=== PATIENT | male | born 1960 | race Caucasian/White ===

== ENCOUNTER 2017-07-12 10:26 | Emergency (ER) | payer MEDICAID, OTHER ==
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
--- NOTE | 2017-07-12 11:17 | EKG REPORT ---
SEVERITY:- NORMAL ECG - SINUS RHYTHM : Confirmed by: Lori Lares MD 12-Jul-2017 11:16:30
[2017-07-12 11:39] LABS: APPEARANCE,URINE CLEAR; BILIRUBIN,URINE NEGATIVE (NEGATIVE); GLUCOSE, URINE NEGATIVE (NEGATIVE); KETONES,URINE NEGATIVE (NEGATIVE); LEUKOCYTE ESTERASE,URINE NEGATIVE (NEGATIVE); NITRITE,URINE NEGATIVE (NEGATIVE); PROTEIN,URINE NEGATIVE (NEGATIVE); URINE SPECIFIC GRAVITY 1.002; UROBILINOGEN,URINE NEGATIVE mg/dL (<2.0)
[2017-07-12 11:42] LABS: ABSOLUTE BASOPHILS # (AUTO) 0.1 10^3/uL (0.0-0.2); ABSOLUTE EOSINOPHILS # (AUTO) 0.2 10^3/uL (0.0-0.6); ABSOLUTE LYMPHOCYTES (AUTO) 2.2 10^3/uL (0.5-4.7); ABSOLUTE MONOCYTES (AUTO) 0.6 10^3/uL (0.1-1.4); ABSOLUTE NEUT (AUTO) 3.7 10^3/uL (1.7-8.2); BASOPHILS % (AUTO) 0.9 % (0-2); EOSINOPHILS % (AUTO) 3.4 % (0-6); HEMATOCRIT 39.5 % (37.9-51.0); HEMOGLOBIN 13.4 g/dL (13.5-17.0); HGB HCT DIFFERENCE 0.7; LYMPHOCYTES % (AUTO) 31.9 % (13-45); MEAN CORPUSCULAR HEMOGLOBIN 30.8 pg (27.0-33.4); MEAN CORPUSCULAR HGB CONC 33.9 g/dL (32.0-36.0); MEAN CORPUSCULAR VOLUME 91 fl (80-97); MONOCYTES % (AUTO) 8.7 % (3-13); RED BLOOD COUNT 4.35 10^6/uL (4.35-5.55); RED CELL DISTRIBUTION WIDTH 13.5 % (11.5-14.0); SEGMENTED NEUTROPHILS % (AUTO) 55.1 % (42-78); WHITE BLOOD COUNT 6.8 10^3/uL (4.0-10.5)
[2017-07-12 11:53] LABS: ALANINE AMINOTRANSFERASE 31 U/L (21-72); ALBUMIN 4.3 g/dL (3.5-5.0); ALKALINE PHOSPHATASE 75 U/L (38-126); ANION GAP 10 (5-19); ASPARTATE AMINO TRANSFERASE 21 U/L (17-59); BILIRUBIN,DIRECT 0.4 mg/dL (0.0-0.4); BILIRUBIN,TOTAL 0.4 mg/dL (0.2-1.3); BLOOD UREA NITROGEN 17 mg/dL (7-20); CALCIUM 9.2 mg/dL (8.4-10.2); CARBON DIOXIDE 25 mmol/L (22-30); CHLORIDE 105 mmol/L (98-107); CREATININE RESULT 1.15 mg/dL (0.52-1.25); GLUCOSE 88 mg/dL (75-110); POTASSIUM 3.8 mmol/L (3.6-5.0); SODIUM 140.4 mmol/L (137-145); TOTAL PROTEIN 7.1 g/dL (6.3-8.2)
[2017-07-12 11:54] LABS: ALCOHOL < 10 mg/dL (NONE DETECTED)
[2017-07-12 11:59] LABS: URINE BARBITURATES SCREEN NEGATIVE; URINE METHADONE SCREEN NEGATIVE; URINE OPIATES LOW NEGATIVE; URINE PHENCYCLIDINE SCREEN NEGATIVE
--- NOTE | 2017-07-12 12:51 | ER Document Report ---
ED Psych Disorder / Suicide - General Mode of Arrival: Ambulatory Information source: Patient TRAVEL OUTSIDE OF THE [place] IN LAST 30 DAYS: No <BUBBA HUANG - Last Filed: 07/12/17 17:24> <DANYA ROCHE - Last Filed: 07/12/17 18:33> - General Chief Complaint: Suicidal Ideation Stated Complaint: SUICIDIAL IDEATIONS Time Seen by Provider: 07/12/17 10:46 Notes: Patient is a 57-year-old male who presents to the emergency department today with complaints of suicidal and homicidal ideation. Patient states that his girlfriend recently broke up with him and "left him broke". Patient states he would kill himself with a knife if he had the opportunity. Patient states he has had inpatient stays in psychiatric facilities in the past. Patient is on Seroquel, prazosin, and a medication he cannot remember. (BUBBA HUANG) - Related Data Allergies/Adverse Reactions: No Known Allergies Allergy (Verified 07/12/17 10:31) Home Medications: Current Home Medications Atorvastatin Calcium [Lipitor 40 mg Tablet] 40 mg PO QHS 07/12/17 [History] Buprenorphine HCl/Naloxone HCl [Suboxone 8 mg-2 mg Sl Film] 1 film SL TID [History] Buspirone HCl [Buspar 30 mg Tablet] 30 mg PO BID 07/12/17 [History] Escitalopram Oxalate [Lexapro] 20 mg PO DAILY 07/12/17 [History] Gabapentin [Neurontin 400 mg Capsule] 400 mg PO TID 07/12/17 [History] Ibuprofen [Motrin 800 mg Tablet] 800 mg PO TID 07/12/17 [History] Prazosin HCl [Minipress] 2 mg PO QHS 07/12/17 [History] Quetiapine Fumarate [Seroquel Xr] 600 mg PO QHS 07/12/17 [History] Trihexyphenidyl HCl [Artane 2 mg Tablet] 2 mg PO BID 07/12/17 [History] Past Medical History - General Information source: Patient - Social History Smoking Status: Current Every Day Smoker Cigarette use (# per day): Yes Chew tobacco use (# tins/day): No Frequency of alcohol use: None Drug Abuse: Marijuana Lives with: Family Family History: Reviewed & Not Pertinent Patient has suicidal ideation: Yes - knife to throat Patient has homicidal ideation: Yes - kill girlfriend Pulmonary Medical History: Reports: Hx Bronchitis Surgical Hx: Negative <BUBBA HUANG - Last Filed: 07/12/17 17:24> Review of Systems - Review of Systems Constitutional: No symptoms reported EENT: No symptoms reported Cardiovascular: No symptoms reported Respiratory: No symptoms reported Gastrointestinal: No symptoms reported Genitourinary: No symptoms reported Male Genitourinary: No symptoms reported Musculoskeletal: No symptoms reported Skin: No symptoms reported Hematologic/Lymphatic: No symptoms reported Neurological/Psychological: See HPI, Homicidal ideation, Suicidal ideation -: Yes All other systems reviewed and negative <BUBBA HUANG - Last Filed: 07/12/17 17:24> Physical Exam <BUBBA HUANG - Last Filed: 07/12/17 17:24> <DANYA ROCHE - Last Filed: 07/12/17 18:33> - Vital signs Vitals: Temp Pulse Resp Pulse Ox 98.1 F 59 L 16 99 07/12/17 10:33 07/12/17 10:33 07/12/17 10:33 07/12/17 10:33 - Notes Notes: PHYSICAL EXAM GENERAL: Alert, interacts well. No acute distress. HEAD: Normocephalic, atraumatic. EYES: Pupils equal, round, and reactive to light. Extraocular movements intact. ENT: Oral mucosa moist, tongue midline. NECK: Full range of motion. Supple. Trachea midline. LUNGS: Clear to auscultation bilaterally, no wheezes, rales, or rhonchi. No respiratory distress. HEART: Regular rate and rhythm. No murmurs, gallops, or rubs. ABDOMEN: Soft, non-tender. Non-distended. Bowel sounds present in all 4 quadrants. EXTREMITIES: Moves all 4 extremities spontaneously. No edema, radial and dorsalis pedis pulses 2/4 bilaterally. No cyanosis. NEUROLOGICAL: Alert and oriented x3. Normal speech. PSYCH: Depressed affect, normal mood. SKIN: Warm, dry, normal turgor. No rashes or lesions noted. (BUBBA HUANG) Course - Laboratory Result Diagrams: 07/12/17 11:20 07/12/17 11:20 <BUBBA HUANG - Last Filed: 07/12/17 17:24> - Laboratory Result Diagrams: 07/12/17 11:20 07/12/17 11:20 <DANYA ROCHE - Last Filed: 07/12/17 18:33> - Re-evaluation Re-evalutation: 07/12/17 18:31 CBC unremarkable, CMP unremarkable, urinalysis unremarkable, urine drug screen negative, alcohol, salicylates and acetaminophen all undetectable, EKG unremarkable. Patient is medically cleared at this time and is stable for transfer to psychiatric hospital or discharged home after mental health consultation. (DANYA ROCHE) - Vital Signs Vital signs: Temp Pulse Resp BP Pulse Ox 98.1 F 59 L 16 99 07/12/17 10:33 07/12/17 10:33 07/12/17 10:33 07/12/17 10:33 - Laboratory Laboratory results interpreted by me: 07/12/17 07/12/17 11:20 11:20 Hgb 13.4 L Plt Count 108 L Salicylates < 1.0 L Acetaminophen < 10 L - EKG Interpretation by Me Additional EKG results interpreted by me: 07/12/17 18:32 EKG shows sinus rhythm at a rate of 58, normal axis, normal intervals, no ST segment elevations or depressions, no T-wave inversions per my interpretation. ( DANYA ROCHE) Discharge <BUBBA HUANG - Last Filed: 07/12/17 17:24> <DANYA ROCHE - Last Filed: 07/12/17 18:33> - Discharge Clinical Impression: Suicidal ideation, Homicidal ideation Condition: Stable Disposition: PSYCH HOSP/UNIT Referrals: BRITTNEY CARDOZA, [facility] [Primary Care Provider] - Follow up as needed Scribe Attestation: 07/12/17 18:33 I personally performed the services described in the documentation, reviewed and edited the documentation which was dictated to the scribe in my presence, and it accurately records my words and actions. (DANYA ROCHE) Scribe Documentation - Scribe Written by Evans:: Evans Krishnan, 07/12/2017 1734 acting as scribe for :: Joann <BUBBA HUANG - Last Filed: 07/12/17 17:24>
[2017-07-13] MEDS ORDERED: DOXAZOSIN MESYLATE 2 MG TABLET PO SCH (00:30)
[2017-07-13] MEDS: GABAPENTIN 400 MG CAPSULE PO SCH ×2 (09:29→14:32)
[2017-07-13] MEDS ORDERED: BUSPIRONE HCL 10 MG TABLET PO SCH (10:00)
[2017-07-13] MEDS ORDERED: (PENDING PHARMACY ID) (Buprenorphine Hcl/Naloxone Hcl [Suboxone 8 Mg-2 Mg Sl Film] 1 FILM) SL SCH (10:00)
[2017-07-13] MEDS ORDERED: TRIHEXYPHENIDYL HCL 2 MG TABLET PO SCH (10:00)
[2017-07-13] MEDS ORDERED: ESCITALOPRAM OXALATE 10 MG TABLET PO SCH (10:00)
[2017-07-13] MEDS ORDERED: KETOROLAC TROMETHAMINE 60 MG/2 ML SDV IM ONE (10:17)
[2017-07-13] MEDS ORDERED: HYDROCODONE/ACETAMINOPHEN 10-325 MG TABLET PO ONE (10:17)
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
[2017-07-13 15:52] VITALS: BP 156/100
[2017-07-13] MEDS ORDERED: ATORVASTATIN CALCIUM 40 MG TABLET PO SCH (22:00)
[2017-07-13] MEDS ORDERED: QUETIAPINE FUMARATE 600 MG PO SCH (22:00)
[2017-07-13] MEDS ORDERED: (PENDING PHARMACY ID) (Prazosin Hcl [Minipress] 2 MG) PO SCH (22:00)
== END 2017-07-13 16:04 | disposition home or self-care (01) ==
LOC: ER 10:26
DX: R45.851 Suicidal ideations (principal); R45.850 Homicidal ideations; F43.10 Post-traumatic stress disorder, unspecified; F31.30 Bipolar disorder, current episode depressed, mild or moderate severity, unspecified
CPT/HCPCS: 93005; 99285; 96372; 36415; 80307 ×4; 85025; 80053; 81001; 93010; J1885; J3490 ×3

== ENCOUNTER 2017-07-13 19:06 | Emergency (ER) | payer MEDICAID, OTHER ==
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
[2017-07-13 21:47] LABS: APPEARANCE,URINE SLIGHTLY-CLOUDY; BILIRUBIN,URINE NEGATIVE (NEGATIVE); GLUCOSE, URINE NEGATIVE (NEGATIVE); KETONES,URINE NEGATIVE (NEGATIVE); LEUKOCYTE ESTERASE,URINE NEGATIVE (NEGATIVE); NITRITE,URINE NEGATIVE (NEGATIVE); PROTEIN,URINE NEGATIVE (NEGATIVE); URINE SPECIFIC GRAVITY 1.024
[2017-07-13 22:01] LABS: ABSOLUTE EOSINOPHILS # (AUTO) 0.1 10^3/uL (0.0-0.6); ABSOLUTE LYMPHOCYTES (AUTO) 1.9 10^3/uL (0.5-4.7); ABSOLUTE MONOCYTES (AUTO) 0.6 10^3/uL (0.1-1.4); ABSOLUTE NEUT (AUTO) 6.8 10^3/uL (1.7-8.2); BASOPHILS % (AUTO) 0.5 % (0-2); EOSINOPHILS % (AUTO) 1.1 % (0-6); HEMATOCRIT 43.8 % (37.9-51.0); HEMOGLOBIN 14.9 g/dL (13.5-17.0); HGB HCT DIFFERENCE 0.9; LYMPHOCYTES % (AUTO) 20.5 % (13-45); MEAN CORPUSCULAR HEMOGLOBIN 30.8 pg (27.0-33.4); MEAN CORPUSCULAR VOLUME 91 fl (80-97); RED BLOOD COUNT 4.84 10^6/uL (4.35-5.55); RED CELL DISTRIBUTION WIDTH 13.4 % (11.5-14.0); SEGMENTED NEUTROPHILS % (AUTO) 71.9 % (42-78); WHITE BLOOD COUNT 9.5 10^3/uL (4.0-10.5)
[2017-07-13 22:04] LABS: URINE BARBITURATES SCREEN NEGATIVE; URINE METHADONE SCREEN NEGATIVE; URINE OPIATES LOW UNCONFIRMED POSITIVE; URINE PHENCYCLIDINE SCREEN NEGATIVE
[2017-07-13 22:08] LABS: ALANINE AMINOTRANSFERASE 30 U/L (21-72); ALBUMIN 4.6 g/dL (3.5-5.0); ALKALINE PHOSPHATASE 70 U/L (38-126); ANION GAP 11 (5-19); ASPARTATE AMINO TRANSFERASE 20 U/L (17-59); BILIRUBIN,DIRECT 0.4 mg/dL (0.0-0.4); BILIRUBIN,TOTAL 0.5 mg/dL (0.2-1.3); BLOOD UREA NITROGEN 27 mg/dL (7-20); CALCIUM 9.9 mg/dL (8.4-10.2); CARBON DIOXIDE 26 mmol/L (22-30); CHLORIDE 108 mmol/L (98-107); CREATININE RESULT 1.04 mg/dL (0.52-1.25); GLUCOSE 96 mg/dL (75-110); POTASSIUM 4.5 mmol/L (3.6-5.0); SODIUM 144.8 mmol/L (137-145); TOTAL PROTEIN 7.7 g/dL (6.3-8.2)
[2017-07-13 22:14] LABS: ALCOHOL < 10 mg/dL (NONE DETECTED)
[2017-07-13] MEDS ORDERED: NICOTINE 21 MG/24 HR PATCH.TD24 TD ONE (23:36)
[2017-07-14] MEDS ORDERED: IBUPROFEN 800 MG TABLET ONE (00:28)
[2017-07-14] MEDS: IBUPROFEN 800 MG TABLET PO SCH ×2 (01:10→09:40)
[2017-07-14] MEDS ORDERED: TRIHEXYPHENIDYL HCL 2 MG TABLET PO ONE (01:15)
[2017-07-14] MEDS ORDERED: DOXAZOSIN MESYLATE 2 MG TABLET PO ONE (02:00)
[2017-07-14] MEDS ORDERED: DOXAZOSIN MESYLATE 2 MG TABLET ONE (02:40)
[2017-07-14] MEDS ORDERED: TRIHEXYPHENIDYL HCL 2 MG TABLET ONE (02:40)
[2017-07-14] MEDS ORDERED: GABAPENTIN 400 MG CAPSULE PO SCH (06:00)
--- NOTE | 2017-07-14 09:33 | ER Document Report ---
Doctor's Note Notes: 07/14/17 09:33 As the rounding physician for our psychiatric patients, I have reviewed the chart, vitals, lab work. Patient has been examined and noted to be stable and was actually discharged earlier yesterday returned immediately. I am awaiting mental health in put.
[2017-07-14] MEDS ORDERED: BUSPIRONE HCL 10 MG TABLET PO SCH (10:00)
[2017-07-14] MEDS ORDERED: ESCITALOPRAM OXALATE 10 MG TABLET PO SCH (10:00)
[2017-07-14] MEDS ORDERED: TRIHEXYPHENIDYL HCL 2 MG TABLET PO SCH (10:00)
[2017-07-14 10:45] VITALS: BP 131/74
--- NOTE | 2017-07-14 16:54 | EKG REPORT ---
SEVERITY:- NORMAL ECG - SINUS RHYTHM : Confirmed by: Lori Lares MD 14-Jul-2017 16:54:23
[2017-07-14] MEDS ORDERED: (PENDING PHARMACY ID) (Prazosin Hcl [Minipress] 2 MG) PO SCH (22:00)
[2017-07-14] MEDS ORDERED: QUETIAPINE FUMARATE 600 MG PO SCH (22:00)
[2017-07-14] MEDS ORDERED: DOXAZOSIN MESYLATE 2 MG TABLET PO SCH (22:00)
[2017-07-14] MEDS ORDERED: ATORVASTATIN CALCIUM 40 MG TABLET PO SCH (22:00)
--- NOTE | 2017-07-15 08:02 | EKG REPORT ---
SEVERITY:- BORDERLINE ECG - SINUS RHYTHM RIGHT AXIS DEVIATION BORDERLINE T ABNORMALITIES, ANT-LAT LEADS : Confirmed by: Aleksander Wetzel MD 15-Jul-2017 08:02:27
== END 2017-07-14 10:50 | disposition home or self-care (01) ==
LOC: ER 19:06
DX: R45.851 Suicidal ideations (principal); F31.9 Bipolar disorder, unspecified; R45.850 Homicidal ideations; Z59.0 Homelessness; Z63.0 Problems in relationship with spouse or partner; F17.210 Nicotine dependence, cigarettes, uncomplicated
CPT/HCPCS: 93005 ×2; 99284; 36415; 80307 ×4; 85025; 81001; 80053; 93010 ×2; J3490 ×6

== ENCOUNTER 2017-09-19 12:49 | Emergency (ER) | payer MEDICAID ==
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
--- NOTE | 2017-09-19 14:46 | RADIOLOGY REPORT (SQ) ---
EXAM DESCRIPTION: CHEST PA/LAT COMPLETED DATE/TIME: 09/19/2017 2:30 pm REASON FOR STUDY: cough COMPARISON: None. EXAM PARAMETERS: NUMBER OF VIEWS: two views TECHNIQUE: Digital Frontal and Lateral radiographic views of the chest acquired. RADIATION DOSE: NA LIMITATIONS: none FINDINGS: LUNGS AND PLEURA: No opacities, masses or pneumothorax. No pleural effusion. MEDIASTINUM AND HILAR STRUCTURES: No masses or contour abnormalities. HEART AND VASCULAR STRUCTURES: Heart normal size. No evidence for failure. BONES: No acute findings. HARDWARE: Clips in the upper abdomen. OTHER: No other significant finding. IMPRESSION: NO ACUTE RADIOGRAPHIC FINDING IN THE CHEST. TECHNICAL DOCUMENTATION: JOB ID: [id number] [employer]- All Rights Reserved
[2017-09-19 15:35] VITALS: BP 125/77
== END 2017-09-19 15:33 | disposition home or self-care (01) ==
LOC: ER 12:49
DX: J40 Bronchitis, not specified as acute or chronic (principal); R05 Cough; R68.83 Chills (without fever); R06.2 Wheezing; F17.200 Nicotine dependence, unspecified, uncomplicated
CPT/HCPCS: 71020; 99283

== ENCOUNTER 2018-04-06 15:24 | Emergency (ER) | payer MEDICAID ==
[2018-04-06 15:31] VITALS: BP 107/70
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
== END 2018-04-06 16:25 | disposition home or self-care (01) ==
LOC: ER 15:24
DX: B35.6 Tinea cruris (principal); L03.119 Cellulitis of unspecified part of limb; L03.313 Cellulitis of chest wall
CPT/HCPCS: 99283

== ENCOUNTER 2018-04-19 14:32 | Emergency (ER) | payer MEDICAID ==
[2018-04-19 14:56] VITALS: BP 138/72
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
--- NOTE | 2018-04-19 21:36 | EKG REPORT ---
SEVERITY:- BORDERLINE ECG - SINUS RHYTHM BORDERLINE PROLONGED QT INTERVAL : Confirmed by: Lori Lares MD 19-Apr-2018 21:35:51
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
== END 2018-04-19 19:41 | disposition home or self-care (01) ==
LOC: ER 14:32
DX: F10.20 Alcohol dependence, uncomplicated (principal); F13.20 Sedative, hypnotic or anxiolytic dependence, uncomplicated; F14.20 Cocaine dependence, uncomplicated; F15.20 Other stimulant dependence, uncomplicated; F11.20 Opioid dependence, uncomplicated; F17.210 Nicotine dependence, cigarettes, uncomplicated; Z76.5 Malingerer [conscious simulation]; R94.31 Abnormal electrocardiogram [ECG] [EKG]; Z59.0 Homelessness; Z78.1 Physical restraint status
CPT/HCPCS: 93005; 93010; 99285

== ENCOUNTER 2018-05-10 10:12 | Emergency (ER) | payer MEDICAID, OTHER ==
[2018-05-10 10:17] VITALS: BP 134/80
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
[2018-05-10 11:10] LABS: ABSOLUTE EOSINOPHILS # (AUTO) 0.1 10^3/uL (0.0-0.6); ABSOLUTE MONOCYTES (AUTO) 0.5 10^3/uL (0.1-1.4); ABSOLUTE NEUT (AUTO) 4.9 10^3/uL (1.7-8.2); BASOPHILS % (AUTO) 0.6 % (0-2); EOSINOPHILS % (AUTO) 1.2 % (0-6); HEMATOCRIT 46.1 % (37.9-51.0); HEMOGLOBIN 15.5 g/dL (13.5-17.0); LYMPHOCYTES % (AUTO) 26.1 % (13-45); MEAN CORPUSCULAR HEMOGLOBIN 30.5 pg (27.0-33.4); MEAN CORPUSCULAR HGB CONC 33.7 g/dL (32.0-36.0); MEAN CORPUSCULAR VOLUME 91 fl (80-97); PLATELET COUNT 143 10^3/uL (150-450); RED BLOOD COUNT 5.08 10^6/uL (4.35-5.55); RED CELL DISTRIBUTION WIDTH 13.9 % (11.5-14.0); SEGMENTED NEUTROPHILS % (AUTO) 65.1 % (42-78); TOTAL CELLS COUNTED % (AUTO) 100 %; WHITE BLOOD COUNT 7.5 10^3/uL (4.0-10.5)
[2018-05-10 11:31] LABS: ALANINE AMINOTRANSFERASE 41 U/L (21-72); ALBUMIN 4.8 g/dL (3.5-5.0); ALKALINE PHOSPHATASE 82 U/L (38-126); ANION GAP 13 (5-19); ASPARTATE AMINO TRANSFERASE 26 U/L (17-59); BILIRUBIN,DIRECT 0.3 mg/dL (0.0-0.4); BILIRUBIN,TOTAL 0.4 mg/dL (0.2-1.3); BLOOD UREA NITROGEN 9 mg/dL (7-20); CALCIUM 9.6 mg/dL (8.4-10.2); CARBON DIOXIDE 26 mmol/L (22-30); CHLORIDE 105 mmol/L (98-107); GLUCOSE 114 mg/dL (75-110); POTASSIUM 4.6 mmol/L (3.6-5.0); SODIUM 143.8 mmol/L (137-145); TOTAL PROTEIN 8.1 g/dL (6.3-8.2)
[2018-05-10 11:32] LABS: ACETAMINOPHEN < 10 ug/mL (10-30); ALCOHOL < 10 mg/dL (NONE DETECTED); SALICYLATE < 1.0 mg/dL (2.0-20.0)
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
[2018-05-10 11:58] LABS: APPEARANCE,URINE CLEAR; BILIRUBIN,URINE NEGATIVE (NEGATIVE); COLOR,URINE YELLOW; GLUCOSE, URINE NEGATIVE (NEGATIVE); KETONES,URINE NEGATIVE (NEGATIVE); LEUKOCYTE ESTERASE,URINE NEGATIVE (NEGATIVE); NITRITE,URINE NEGATIVE (NEGATIVE); PROTEIN,URINE NEGATIVE (NEGATIVE); URINE SPECIFIC GRAVITY 1.012; UROBILINOGEN,URINE NEGATIVE mg/dL (<2.0)
[2018-05-10 12:16] LABS: URINE AMPHETAMINES SCREEN NEGATIVE; URINE BARBITURATES SCREEN NEGATIVE; URINE BENZODIAZEPINES SCREEN NEGATIVE; URINE COCAINE SCREEN NEGATIVE; URINE MARIJUANA (THC) SCREEN UNCONFIRMED POSITIVE; URINE METHADONE SCREEN NEGATIVE; URINE PHENCYCLIDINE SCREEN NEGATIVE
[2018-05-10] MEDS ORDERED: BUSPIRONE HCL 10 MG TABLET PO ONE ×2 (12:18→12:21)
[2018-05-10] MEDS ORDERED: QUETIAPINE FUMARATE 100 MG TABLET PO ONE ×2 (12:18→12:21)
--- NOTE | 2018-05-10 18:59 | PSYCHOLOGICAL NOTE ---
Psych Note - Psych Note Psych Note: Patient reported that he needed to go to the hospital in [place] to "get on his original medication and to be observed". Patient was in [facility] two weeks ago was discharged, then arrested and spent 10 days in correction. Patient states that he was not taking his medication in correction. During his stay in correction, his disability check was messed up due to incarceration, so he was unable to continuing staying in the [facility], so now he is homeless. Tino Vasques ([phone] ), a patient who also lives at the [facility] saw him sitting outside of the [employer] and stopped to pick him up. Mr. Vasques states that the patient told him that he wanted to kill himself. Mr. Vasques than brought him here to the hospital. Patient presented in a direct, matter of fact tone. Good eye contact. Calm mood.
--- NOTE | 2018-05-11 09:51 | EKG REPORT ---
SEVERITY:- NORMAL ECG - SINUS RHYTHM : Confirmed by: Lexii Horn 11-May-2018 09:49:39
== END 2018-05-10 13:30 | disposition home or self-care (01) ==
LOC: ER 10:12
DX: R45.851 Suicidal ideations (principal); F20.9 Schizophrenia, unspecified; T43.596A Underdosing of other antipsychotics and neuroleptics, initial encounter; Z91.128 Patient's intentional underdosing of medication regimen for other reason; Z91.14 Patient's other noncompliance with medication regimen; F60.9 Personality disorder, unspecified; F17.210 Nicotine dependence, cigarettes, uncomplicated
CPT/HCPCS: 93005; 99285; 36415; 80307 ×4; 85025; 80053; 81001; 93010; J3490 ×2

== ENCOUNTER 2018-06-23 08:47 | Emergency (ER) | payer MEDICAID ==
[2018-06-23] MEDS ORDERED: ACETAMINOPHEN SOLN 325 MG/10.15 ML UDCUP PO ONE (11:56)
[2018-06-23] MEDS ORDERED: IBUPROFEN 600 MG TABLET PO ONE (11:56)
[2018-06-23] MEDS ORDERED: PENICILLIN V POTASSIUM 500 MG TABLET PO ONE (11:57)
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
[2018-06-23 13:23] VITALS: BP 128/81
== END 2018-06-23 13:23 | disposition home or self-care (01) ==
LOC: ER 08:47
DX: K08.9 Disorder of teeth and supporting structures, unspecified (principal); F17.200 Nicotine dependence, unspecified, uncomplicated
CPT/HCPCS: 99283; J3490 ×3

== ENCOUNTER 2018-07-14 14:44 | Emergency (ER) | payer MEDICAID ==
[2018-07-14] MEDS ORDERED: ACETAMINOPHEN 325 MG TABLET PO ONE (15:47)
--- NOTE | 2018-07-14 16:55 | RADIOLOGY REPORT (SQ) ---
EXAM DESCRIPTION: FOOT RIGHT COMPLETE COMPLETED DATE/TIME: 07/14/2018 4:40 pm REASON FOR STUDY: fall, r foot pain COMPARISON: None. NUMBER OF VIEWS: Three views. TECHNIQUE: AP, lateral and oblique radiographic images acquired of the right foot. LIMITATIONS: None. FINDINGS: MINERALIZATION: Normal. BONES: Nondisplaced fracture of the base of the 5th metatarsal. JOINTS: No effusions. SOFT TISSUES: No soft tissue swelling. No foreign body. OTHER: No other significant finding. IMPRESSION: Fracture of the base of the 5th metatarsal. TECHNICAL DOCUMENTATION: JOB ID: [id number] [employer]- All Rights Reserved Reading location - IP/workstation name: [email or web address]
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
[2018-07-14 17:22] VITALS: BP 167/88
== END 2018-07-14 17:22 | disposition home or self-care (01) ==
LOC: ER 14:44
DX: S92.354A Nondisplaced fracture of fifth metatarsal bone, right foot, initial encounter for closed fracture (principal); W19.XXXA Unspecified fall, initial encounter; Y93.89 Activity, other specified; K02.9 Dental caries, unspecified; R21 Rash and other nonspecific skin eruption; L29.8 Other pruritus; F17.200 Nicotine dependence, unspecified, uncomplicated; I10 Essential (primary) hypertension
CPT/HCPCS: 99283; 73630; 29515; J3490

== ENCOUNTER 2018-08-12 13:37 | Emergency (ER) | payer MEDICAID ==
[2018-08-12] MEDS ORDERED: SULFAMETHOXAZOLE/TRIMETHOPRIM 800-160 MG TABLET PO ONE (15:48)
[2018-08-12] MEDS ORDERED: CEPHALEXIN 500 MG CAPSULE PO ONE (15:48)
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
[2018-08-12] MEDS ORDERED: IBUPROFEN 800 MG TABLET PO ONE (15:55)
[2018-08-12 16:24] VITALS: BP 144/91
== END 2018-08-12 16:23 | disposition home or self-care (01) ==
LOC: ER 13:37
PROC: 0H97XZZ Drainage of Abdomen Skin, External Approach (ICD-10-PCS; principal; 2018-08-12)
DX: L02.214 Cutaneous abscess of groin (principal); K02.9 Dental caries, unspecified; M79.671 Pain in right foot; R40.2412 Glasgow coma scale score 13-15, at arrival to emergency department; F17.210 Nicotine dependence, cigarettes, uncomplicated; I10 Essential (primary) hypertension; M19.90 Unspecified osteoarthritis, unspecified site; F31.9 Bipolar disorder, unspecified; F20.9 Schizophrenia, unspecified
CPT/HCPCS: 99406; 99283; 87070; 87205; 10160; J3490 ×2; 87186